=== PATIENT | male | born 1940 | race Caucasian/White ===

== ENCOUNTER 2018-06-26 07:14 | Day surgery (SDC) | payer OTHER ==
[~2018-06-26] VITALS: Ht 167.6 cm; Wt 78.0 kg
[~2018-06-26 07:14] MED LIST: LISI2.5T47 PO; SIMV5TAB50 PO; TAMS0.4C36 PO
[2018-06-26] MEDS ORDERED: LIDOCAINE 2%HCL (LOCAL ANESTH.) INJ 20ML MDV ONE (07:49)
[2018-06-26] MEDS ORDERED: IODIXANOL 320MG/ML 100ML BTL IV ONE (07:49)
[2018-06-26] MEDS ORDERED: FLUMAZENIL 0.1 MG/ML INJ 10ML MDV IV ONE (07:55)
[2018-06-26] MEDS ORDERED: MIDAZOLAM HCL 1MG/1ML-2 ML VIAL ONE (07:55)
[2018-06-26] MEDS ORDERED: NALOXONE HCL 0.4 MG/ML VIAL ONE (07:55)
[2018-06-26] MEDS ORDERED: fentaNYL CITRATE 100 MCG/2 ML VL ONE (07:55)
[2018-06-26] MEDS ORDERED: LIDOCAINE VISCOUS 2% 15ML UD ONE (07:56)
[2018-06-26] MEDS ORDERED: VERAPAMIL 2.5MG/ML INJ 2ML VIAL IV ONE (08:36)
[2018-06-26] MEDS ORDERED: SODIUM CHL 0.9% 0 ML ONE (08:36)
[2018-06-26] MEDS ORDERED: fentaNYL CITRATE 100 MCG/2 ML VL IV ONE (08:45)
[2018-06-26] MEDS ORDERED: MIDAZOLAM HCL 1MG/1ML-2 ML VIAL IV ONE (08:45)
[2018-06-26] MEDS ORDERED: LIDOCAINE VISCOUS 2% 15ML UD PO ONE (08:45)
[2018-06-26] MEDS ORDERED: SODIUM CHL 0.9% 50 ML ONE (08:49)
[2018-06-26] MEDS ORDERED: ANGIOMAX 250 MG VIAL IV ONE (08:49)
[2018-06-26] MEDS ORDERED: HEPARIN SODIUM (PORCINE) 5000 UNITS/ML 1ML VIAL ONE (09:51)
== END 2018-06-26 11:45 | disposition home or self-care (01) ==
LOC: CATH 07:14
PROVIDERS: ATTEND Internal Medicine
DX: I35.0 Nonrheumatic aortic (valve) stenosis (principal); I05.0 Rheumatic mitral stenosis; I10 Essential (primary) hypertension; E78.5 Hyperlipidemia, unspecified; Z82.49 Family history of ischemic heart disease and other diseases of the circulatory system; Z87.891 Personal history of nicotine dependence; Z79.899 Other long term (current) drug therapy
CPT/HCPCS: 93005; 93312; 93456; A6257; C1769; C1894; J1644; J2250; J3010; J7030; Q9967; 99152; 99153